=== PATIENT | male | born 1970 | race Caucasian/White ===

== ENCOUNTER 2017-08-03 08:30 | Outpatient (RCR) | payer OTHER, SELFPAY | END 2017-08-03 13:00 | disposition home or self-care (01) | LOC: PT 08:30 | PROVIDERS: Family Provider Emergency Medicine; PCP Nurse Practitioner Family; Visit Provider Nurse Practitioner Family | DX: M17.11 Unilateral primary osteoarthritis, right knee (principal); M17.0 Bilateral primary osteoarthritis of knee | CPT/HCPCS: 97033; 97110; 97140; 97163 ==

== ENCOUNTER 2019-03-20 13:00 | Outpatient (RCR) | payer OTHER, SELFPAY | END 2019-04-11 15:14 | disposition home or self-care (01) | LOC: PT.CARL 13:00 | PROVIDERS: Visit Provider Orthopaedic Surgery | DX: M16.11 Unilateral primary osteoarthritis, right hip (principal); Z96.641 Presence of right artificial hip joint | CPT/HCPCS: 97110; 97116; 97163 ==

== ENCOUNTER 2019-12-16 17:14 | Emergency (ER) | payer OTHER, SELFPAY ==
[2019-12-16 17:40] VITALS: BP 127/74; PULSE 86; RESP 19; TEMP 36.8; O2SAT 98; BMI 49.1
--- NOTE | 2019-12-16 17:41 | HMH.EDUTC ---
[facility] [place] Disposition Clinical Impression: Strep throat Disposition: Home, Self-Care Condition on Discharge: Good Instructions: Strep Throat Additional Instructions: Drink plenty of fluids. Take tylenol or ibuprofen for pain or fever. Take the medications as directed. Follow up with your regular doctor. GO TO THE ER FOR ANY WORSENING SYMPTOMS FOLLOW THE DIRECTIONS ON THE COVID-19 HAND OUT THAT WE GAVE YOU REGARDING SELF-ISOLATION UNTIL YOU KNOW YOUR COVID-19 RESULTS Prescriptions: Amoxicillin/Potassium Clav [Augmentin 875-125 Tablet] 1 tab PO Q12H 10 Days #20 tab Transmission Status: Received by [facility] Referrals: Vania Reyes [Primary Care Provider] - Forms: Work/School Release Time of Disposition: 17:48 Medical Decision Making - Medical Records Medical records reviewed: No: I reviewed the patient's medical records. - Rey Inquiry Pt receiving controlled substance: No Vital Signs: 12/16/19 17:40 12/16/19 18:05 Temperature 98.3 F 98.3 F Temperature Source Oral Pulse Rate 86 Pulse Rate [Right Brachial] 86 Respiratory Rate 19 19 Blood Pressure 127/74 Blood Pressure [Right Arm] 127/74 Blood Pressure Mean [Right Arm] 91 Blood Pressure Source [Right Arm] Automatic Cuff Blood Pressure Position [Right Arm] Sitting 02 Sat by Pulse Oximetry 98 Oxygen Delivery Method Room Air - Lab Data Lab results reviewed: Yes: I reviewed the patient's lab results. Lab Results 12/16/19 17:38: Influenza Type A Ag Negative, Influenza Type B Ag Negative 12/16/19 17:38: Strep Scn Rapid Clinic Positive A Orders (Tests/Meds): ORDERS Category Date Time Status Covid-19 Nasal PCR Sendout [facility] 12/16/19 17:23 Received [facility] [place] HPI - General Stated complaint: fever,weakness, wants COVID test Time Seen by Provider: 12/16/19 17:41 - History of Present Illness Provider Complaint: He states that yesterday he began feeling very bad. Since then, he ran a fever up to 101. He has also had body aches. He states that sometime during last night his fever broke and he has began or feel slightly better. He denies any sore throat or a cough. - Related Data Home Medications Medication Instructions Recorded Confirmed Fluoxetine HCl [Prozac] 40 mg PO DAILY 12/16/19 12/16/19 Previous Rx's Medication Instructions Recorded Amoxicillin/Potassium Clav 1 tab PO Q12H 10 Days #20 tab 12/16/19 [Augmentin 875-125 Tablet] Allergies Allergy/AdvReac Type Severity Reaction Status Date / Time nitroglycerin [NITROGLYCERIN] AdvReac Mild Verified 12/16/19 17:43 [facility] History - Hepatitis A Screen Attestation statement:: This patient has been screened for Hepatitis A risk factors. I have reviewed the patient's past medical history: Yes Amputation: No Fractures: No - Social History Alcohol Intake: never Occupational Status: employed ROS Obtained: Yes All systems reviewed & no additional complaints - Constitutional Constitutional: Reports chills, Reports fever(s), Reports poor appetite, Reports malaise - Eyes Eyes: Denies eye discharge - ENT Ears, Nose, Mouth, and Throat: Reports as per HPI - Cardiovascular Cardiovascular: Denies chest pain - Respiratory Respiratory: No chest congestion, Yes cough Physical Exam - General General appearance: alert, in no apparent distress - Head Head exam: atraumatic, normocephalic, normal inspection - Eye Eye exam: Present: normal appearance, PERRL, EOMI - ENT ENT exam: Present: mucous membranes moist, normal external ear exam - Expanded ENT Exam TM/Canal exam: Bilateral TM: erythema, bulging Mouth exam: Present: normal external inspection Teeth exam: Present: normal inspection Throat exam: Present: tonsillar erythema, tonsillomegaly. Absent: tonsillar exudate, R peritonsillar mass, L peritonsillar mass - Neck Neck exam: Present: normal inspection, full ROM, trachea midline. Absent: meningismus
[2019-12-16 17:54] LABS: UTC Influenza A Antigen Negative (Negative); UTC Influenza B Antigen Negative (Negative); UTC Strep Screen (Rapid) Positive (Negative)
[2019-12-16 18:05] VITALS: BP 127/74; PULSE 86; RESP 19; TEMP 36.8; O2SAT 98
[2019-12-18 08:05] LABS: Covid-19 Nasal PCR Sendout Lex NOT DETECTED
== END 2019-12-16 18:07 | disposition home or self-care (01) ==
PROVIDERS: Emergency Provider Nurse Practitioner Family; PCP Nurse Practitioner Family
DX: J02.0 Streptococcal pharyngitis (principal); Z03.818 Encounter for observation for suspected exposure to other biological agents ruled out
CPT/HCPCS: 87804; 87880; 99202; U0004

== ENCOUNTER 2021-01-04 09:35 | Emergency (ER) | payer OTHER, SELFPAY ==
[2021-01-04 09:35] VITALS: BP 132/83; PULSE 85; RESP 19; TEMP 36.9; O2SAT 96; BMI 49.8
--- NOTE | 2021-01-04 09:42 | XR_ITS ---
PROCEDURE: XR ANKLE RT MIN 3V CLINICAL INDICATION: pain COMPARISON: No exams were available for comparison FINDINGS: No fracture or dislocation. No lytic or blastic change. There is normal mineralization. The joint spaces are well-preserved. No significant degenerative/arthritic changes. No erosive changes evident. Other findings:Small osteophyte noted along the distal aspect of the fibula IMPRESSION: No acute findings. Dictated by: Rickey Jeronimo MD 01/04/2021 11:17 Rickey Jeronimo MD in [place] 01/04/2021 11:17
--- NOTE | 2021-01-04 09:59 | HMH.EDUTC ---
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 Start daily tomorrow and follow up with your Family Doctor for further treatment Return if needed Straight to ER if any life threatening symptoms Follow up with your Family Doctor for further evaluation and treatment Prescriptions: Colchicine [Colcrys 0.6mg tablet] 0.6 mg PO DIRECTED #15 tab Transmission Status: Received by [facility] Referrals: Vania Reyes [Primary Care Provider] - As needed Time of Disposition: 11:35 Medical Decision Making - Rey Inquiry Pt receiving controlled substance: No Rey was queried for this patient: No Vital Signs: 01/04/21 09:35 Temperature 98.4 F Temperature Source Oral Pulse Rate [Right Brachial] 85 Respiratory Rate 19 Blood Pressure [Right Arm] 132/83 Blood Pressure Mean [Right Arm] 99 Blood Pressure Source [Right Arm] Automatic Cuff Blood Pressure Position [Right Arm] Sitting 02 Sat by Pulse Oximetry 96 Oxygen Delivery Method Room Air - Lab Data Lab Results 01/04/21 10:36: Uric Acid 8.4 - Radiology Data #1 Image(s): Ankle Image Reviewed: Yes I have reviewed radiologist's interpretation No acute findings. [facility] [place] HPI - General Stated complaint: Right ankle swollen; no accident Time Seen by Provider: 01/04/21 10:00 Mode of Arrival: Ambulatory Source of Information: Patient Limitations: No Limitations Description of Symptoms (Recalled from Triage Doc. by RN): PATIENT C/O RIGHT ANKLE PAIN SINCE LAST NIGHT. NO KNOWN INJURY HEENT Symptoms (Recalled from RN notes): No Resp Symptoms (Recalled from RN notes): No Skin Symptoms (Recalled from RN notes): No MS Symptoms (Recalled from RN notes): Yes Functional Status (Recalled from RN notes): WNL - History of Present Illness Provider Complaint: Patient states that he has been having Pain and swelling in right ankle since he woke up this morning State that pain is worse when he tries to walk on it or stand on it Denies known injury of his ankle - Related Data Home Medications Medication Instructions Recorded Confirmed Fluoxetine HCl [Prozac] 40 mg PO DAILY 12/16/19 12/16/19 Previous Rx's Medication Instructions Recorded Amoxicillin/Potassium Clav 1 tab PO Q12H 10 Days #20 tab 12/16/19 [Augmentin 875-125 Tablet] Colchicine [Colcrys 0.6mg tablet] 0.6 mg PO DIRECTED #15 tab 01/04/21 Allergies Allergy/AdvReac Type Severity Reaction Status Date / Time nitroglycerin [NITROGLYCERIN] AdvReac Mild Verified 12/16/19 17:43 - Worker's Comp Is this a Worker's Comp case?: No [facility] History - Hepatitis A Screen Drug use history?: No High risk sexual behaviors?: No History of sexually transmitted infection?: No Currently employed?: No Childcare worker?: No Do you have indoor plumbing?: Yes Do you have electricity?: Yes Attestation statement:: This patient has been screened for Hepatitis A risk factors. I have reviewed the patient's past medical history: Yes Amputation: No Fractures: No - Social History Alcohol Intake: never Occupational Status: other ROS Obtained: Yes All systems reviewed & no additional complaints, Yes Systems reviewed as appropriate & no additional complaints - Constitutional Constitutional: Reports system reviewed and no additional complaints, except as docu, Denies body ache, Denies chills, Denies fever(s) - ENT Ears, Nose, Mouth, and Throat: Reports system reviewed and no additional complaints, except as docu - Cardiovascular Cardiovascular: Reports system reviewed and no additional complaints, except as docu - Respiratory Respiratory: Reports system reviewed and no additional
[2021-01-04 10:52] LABS: Uric Acid 8.4 mg/dl (3.5-8.5)
[2021-01-04 11:35] VITALS: BP 132/83; PULSE 85; RESP 19; TEMP 36.9; O2SAT 96
== END 2021-01-04 11:40 | disposition home or self-care (01) ==
PROVIDERS: Nurse Practitioner Family; Emergency Provider Nurse Practitioner; PCP Nurse Practitioner Family
DX: M11.271 Other chondrocalcinosis, right ankle and foot (principal)
CPT/HCPCS: 73610; 84550; 99202; G0463

== ENCOUNTER → 2021-12-14 14:04 | Outpatient (CLI) | payer BC, OTHER, SELFPAY ==
[2021-12-16 16:12] LABS: H. pylori Breath Test Negative (Negative)
[2021-12-22 15:09] LABS: Cotinine >1000.0 ng/mL (.); Nicotine >1000.0 ng/mL (.)
== END ==
PROVIDERS: PCP Nurse Practitioner Family; Visit Provider Surgery
DX: Z01.812 Encounter for preprocedural laboratory examination (principal); I10 Essential (primary) hypertension; M10.9 Gout, unspecified; R10.13 Epigastric pain; R00.9 Unspecified abnormalities of heart beat; E66.01 Morbid (severe) obesity due to excess calories; Z72.0 Tobacco use
CPT/HCPCS: 80323; 83013; G0480

== ENCOUNTER 2022-03-03 00:24 | Emergency (ER) | payer BC, OTHER, SELFPAY ==
[2022-03-03 00:25] VITALS: BP 121/82; PULSE 100; RESP 18; TEMP 37.4; O2SAT 95; BMI 52.4
[2022-03-03 01:00] VITALS: BP 123/79; PULSE 87; O2SAT 91
--- NOTE | 2022-03-03 01:04 | HMH.EDNVD ---
Discharge Plan Disposition Patient Disposition: Home, Self-Care Chief Complaint: Nausea/Vomiting/Diarrhea Prescriptions Prescriptions: No Action colchicine 0.6 MG tablet 0.6 mg PO DIRECTED Qty: 15 0RF Rx Instructions: Take 2 tablets (1.2mg) at first sign of flare followed by 1 tablet (0.6mg) 1 hour later. Take once daily thereafter. fluoxetine 40 MG capsule 40 mg PO DAILY amoxicillin-pot clavulanate 1 EACH tablet 1 tab PO Q12H 10 Days Qty: 20 0RF Referrals Follow up/Referrals: Vania Reyes [Primary Care Provider] - See instructions Clinical Impressions Clinical Impression: Gastroenteritis Instructions Patient Instructions: DI for Diarrhea and Traveler's Diarrhea -- Adult Discharge ED Provider: Dereck Issa Nausea/Vomiting/Diarrhea HPI General Chief complaint: Nausea/Vomiting/Diarrhea Stated complaint: Chilles,diarrhea Time Seen by Provider: 03/03/22 01:05 Mode of Arrival: Ambulatory Source of Information: Patient and Medical Record Limitations: No Limitations Description of Symptoms (Recalled from ER Triage Doc. by RN): pt states that he has had diarrhea all day. the pt states that he had the gastric sleeve done a month ago and water is going through him so fast he knows he is not getting enough. History of Present Illness HPI Narrative: recent gi surg and has acute diarrhea - no blood MD complaint: diarrhea Onset (ago): hour(s) Associated Abdominal Pain: Yes Severity: moderate Consistency: intermittent Context: recent surgery/procedure Associated symptoms: denies other symptoms Related Data Home Medications Medication Instructions Recorded Confirmed fluoxetine 40 mg capsule 40 mg PO DAILY Depression 12/16/19 12/16/19 Previous Rx's Medication Instructions Recorded amoxicillin 875 mg-potassium 1 tab PO Q12H 10 days #20 tabs 12/16/19 clavulanate 125 mg tablet colchicine 0.6 mg tablet 0.6 mg PO DIRECTED #15 tabs 01/04/21 Allergies Allergy/AdvReac Type Severity Reaction Status Date / Time nitroglycerin [NITROGLYCERIN] AdvReac Mild Verified 12/16/19 17:43 PFSH PFSH Social History Smoking Status: Never smoker alcohol intake: never current occupational status: other Travel in the last 8 weeks: None ROS Obtained: Yes All systems reviewed & no additional complaints except as documented Physical Exam General General appearance: alert Head Head exam: normocephalic Eye Eye exam: Present PERRL and EOMI ENT ENT exam: Present normal oropharynx Neck Neck exam: Present trachea midline Respiratory Respiratory exam: Present normal lung sounds bilaterally Cardiovascular Cardiovascular exam: Present regular rate Abdominal Exam Abdominal exam: Present soft Extremities Exam Extremities exam: Absent edema Neurological Exam Neurological exam: Present alert, oriented X3 and CN II-XII intact Psychiatric Psychiatric exam: Present normal affect Skin Skin exam: Absent rash Medical Decision Making Medical Records Medical records reviewed: Yes I reviewed the patient's medical records. Rey Inquiry Pt receiving controlled substance: No Vital Signs: 03/03/22 00:25 Temperature 99.4 F Temperature Source Oral Pulse Rate [Left] 100 H Respiratory Rate 18 Blood Pressure [Right Arm] 121/82 Blood Pressure Mean [Right Arm] 95 02 Sat by Pulse Oximetry 95 Oxygen Delivery Method Room Air Lab Data Lab results reviewed: Yes I reviewed the patient's lab results. Lab Results 03/03/22 00:50: WBC 9.2, RBC 5.36, Hgb 15.5, Hct 47.9, MCV 89.4, MCH 28.8, MCHC 32.3, RDW 13.6, Plt Count 264, MPV 8.5, Neut % (Auto) 83.0 H, Lymph % (Auto) 8.4 L, [place] % (Auto) 4.6, Eos % (Auto) 2.4, Baso % (Auto) 1.7, Neut # (Auto) 7.6, Lymph # (Auto) 0.8, [place] # (Auto) 0.4, Eos # (Auto) 0.2, Baso # (Auto) 0.2 03/03/22 00:50: Sodium 137, Potassium 4.0, Chloride 104, Carbon Dioxide 24, Anion Gap 13.0, BUN 14, Creatinine 1.00, Estimated Creat Clear 113, Estimated GFR 79, Est GFR
[2022-03-03 01:14] LABS: Basophils # 0.2 K/mm3 (0-0.2); Basophils % 1.7 % (0.1-2.0); Chloride 104 mmol/L (98-107); Eosinophils # 0.2 K/mm3 (0.0-0.4); Eosinophils % 2.4 % (0.1-12.0); Hematocrit 47.9 % (42.0-52.0); Hemoglobin 15.5 g/dL (14.1-18.0); Lymphocytes # 0.8 K/mm3 (0.7-4.5); Lymphocytes % 8.4 % (10-50); Mean Corpuscular HGB Conc 32.3 g/dL (31.8-35.4); Mean Corpuscular Hemoglobin 28.8 pg (27.0-31.2); Mean Corpuscular Volume 89.4 fl (80-94); Mean Platelet Volume 8.5 fl (7.4-10.4); Monocytes # 0.4 K/mm3 (0.1-1.0); Monocytes % 4.6 % (1.7-9.3); Neutrophils # 7.6 K/mm3 (1.8-7.8); Platelet Count 264 K/mm3 (142-424); Red Blood Count 5.36 M/mm3 (4.60-6.20); Red Cell Distribution Width 13.6 % (11.5-17.5); Sodium 137 mmol/L (136-145); White Blood Count 9.2 K/mm3 (4.8-10.8)
[2022-03-03 01:16] LABS: Blood Urea Nitrogen 14 mg/dl (9-20); Creatinine Clearance Estimated 113 mL/min (50-200); Estimated Glomerular Filt Rate 79 ml/min (>60); GFR (African American) 96 ML/MIN (>60)
[2022-03-03 01:17] LABS: Alanine Aminotransferase 45 U/L (12-78); Albumin Level 4.5 g/dl (3.5-5.0); Albumin/Globulin Ratio 1.4 (1.1-1.8); Alkaline Phosphatase 103 U/L (38-126); Aspartate Amino Transferase 44 U/L (17-59); Bilirubin,Total 0.9 mg/dl (0.2-1.3); Calcium 9.4 mg/dl (8.4-10.2); Carbon Dioxide 24 mmol/L (22.0-30.0); Globulin 3.2 g/dL (1.3-3.2); Glucose 105 mg/dl (74-100); Total Protein,Serum 7.7 g/dl (6.3-8.2)
[2022-03-03 01:18] LABS: Magnesium 1.5 mg/dl (1.6-2.3)
[2022-03-03 01:30] VITALS: BP 124/71; PULSE 84; O2SAT 90
[2022-03-03 02:00] VITALS: BP 110/74; PULSE 93; O2SAT 90
--- NOTE | 2022-03-03 03:39 | PC.NURSE ---
diarrhea panel collected and sent to the lab
[2022-03-03 03:42] LABS: Adenovirus F 40/41, stool Not Detected (NotDetected); Astrovirus Not Detected (NotDetected); Campylobacter Not Detected (NotDetected); Clostridium Difficile A/B, PCR Not Detected (NotDetected); Cryptosporidium Not Detected (NotDetected); Cyclospora Cayetanesis Not Detected (NotDetected); Entamoeba histolytica Not Detected (NotDetected); Enteroaggregative E coli Not Detected (NotDetected); Enteropathogenic E coli Not Detected (NotDetected); Enterotoxigenic E coli Not Detected (NotDetected); Giardia lamblia Not Detected (NotDetected); Plesimonas Shigalloides, PCR Not Detected (NotDetected); Rotavirus A Not Detected (NotDetected); Salmonella, PCR Not Detected (NotDetected); Sapovirus Not Detected (NotDetected); Shiga-like toxin E coli Not Detected (NotDetected); Shigella Enterovasive E coli Not Detected (NotDetected); Vibrio Cholerae Not Detected (NotDetected); Vibrio, PCR Not Detected (NotDetected); Yersinia Entercolitica, PCR Not Detected (NotDetected)
[2022-03-03 04:26] VITALS: BP 115/76; PULSE 79; RESP 18; TEMP 37.1; O2SAT 94
[2022-03-03 04:38] VITALS: BP 115/76; PULSE 86; RESP 18; TEMP 37.2; O2SAT 98
[2022-03-03 06:24] LABS: Norovirus Detected (NotDetected)
--- NOTE | 2022-03-03 07:27 | PC.NURSE ---
Dr. Issa notified of diarrhea panel results.
== END 2022-03-03 04:41 | disposition home or self-care (01) ==
PROVIDERS: Emergency Provider Emergency Medicine; PCP Nurse Practitioner Family
DX: R11.2 Nausea with vomiting, unspecified (principal); R19.7 Diarrhea, unspecified; Z98.84 Bariatric surgery status; Z88.8 Allergy status to other drugs, medicaments and biological substances
CPT/HCPCS: 80053; 83735; 85025; 87507; 96360; 99284

== ENCOUNTER → 2022-09-29 11:34 | Outpatient (CLI) | payer OTHER, SELFPAY ==
[2022-09-29 12:33] LABS: Basophils % 0.6 % (0.1-2.0); Eosinophils # 0.2 K/mm3 (0.0-0.4); Eosinophils % 2.1 % (0.1-12.0); Hematocrit 42.7 % (42.0-52.0); Hemoglobin 14.2 g/dL (14.1-18.0); Lymphocytes # 1.8 K/mm3 (0.7-4.5); Lymphocytes % 25.1 % (10-50); Mean Corpuscular HGB Conc 33.3 g/dL (31.8-35.4); Mean Corpuscular Hemoglobin 28.5 pg (27.0-31.2); Mean Corpuscular Volume 85.6 fl (80-94); Monocytes # 0.4 K/mm3 (0.1-1.0); Neutrophils # 4.7 K/mm3 (1.8-7.8); Neutrophils % 66.1 % (37.0-80.0); Platelet Count 261 K/mm3 (142-424); Red Blood Count 4.99 M/mm3 (4.60-6.20); White Blood Count 7.2 K/mm3 (4.8-10.8)
[2022-09-29 12:59] LABS: Chloride 105 mmol/L (98-107); Sodium 142 mmol/L (136-145)
[2022-09-29 13:01] LABS: Blood Urea Nitrogen 12 mg/dl (9-20); Estimated Glomerular Filt Rate 89 ml/min (>60); GFR (African American) 108 ML/MIN (>60)
[2022-09-29 13:02] LABS: Alanine Aminotransferase 20 U/L (12-78); Albumin Level 3.8 g/dl (3.5-5.0); Albumin/Globulin Ratio 1.3 (1.1-1.8); Alkaline Phosphatase 91 U/L (38-126); Anion Gap 14.6 mEq/L (5-15); Aspartate Amino Transferase 26 U/L (17-59); Bilirubin,Total 0.6 mg/dl (0.2-1.3); Calcium 8.7 mg/dl (8.4-10.2); Carbon Dioxide 27 mmol/L (22.0-30.0); Glucose 79 mg/dl (74-100); Potassium 4.6 mmoL/L (3.5-5.1); Total Protein,Serum 6.8 g/dl (6.3-8.2)
[2022-09-29 13:07] LABS: C-Reactive Protein 9.1 mg/L (0-4)
[2022-09-29 14:02] LABS: Erythrocyte Sedimentation Rate 10 mm/hr (0-15)
== END ==
PROVIDERS: PCP Nurse Practitioner Family; Visit Provider Nurse Practitioner Family
DX: L03.90 Cellulitis, unspecified (principal); L60.0 Ingrowing nail; M79.674 Pain in right toe(s); S91.209A Unspecified open wound of unspecified toe(s) with damage to nail, initial encounter; B96.1 Klebsiella pneumoniae [K. pneumoniae] as the cause of diseases classified elsewhere; B95.1 Streptococcus, group B, as the cause of diseases classified elsewhere; B95.7 Other staphylococcus as the cause of diseases classified elsewhere
CPT/HCPCS: 36415; 80053; 85025; 85651; 86140; 87070; 87077; 87186; 87205

== ENCOUNTER → 2022-09-30 13:01 | Outpatient (CLI) | payer OTHER, SELFPAY | PROVIDERS: Visit Provider Nurse Practitioner Family | DX: M79.671 Pain in right foot (principal) ==